=== PATIENT | male | born 1965 | race Caucasian/White ===

== ENCOUNTER 2017-09-23 13:12 | Emergency (ER) | payer MEDICAID ==
[~2017-09-23] VITALS: Ht 167.6 cm; Wt 69.1 kg
[~2017-09-23 13:12] MED LIST: NO HOME MEDS
[2017-09-23 14:31] LABS: BASOPHILS # (AUTO) 0.1 X10'3 (0-0.2); BASOPHILS % (AUTO) 0.4 % (0-1); EOSINOPHILS # (AUTO) 0.2 X10'3 (0-0.9); EOSINOPHILS % (AUTO) 1.2 % (0-6); HEMATOCRIT 50.8 % (42.0-52.0); HEMOGLOBIN 17.4 g/dl (14.0-17.9); LYMPHOCYTES # (AUTO) 0.9 X10'3 (1.1-4.8); MEAN CORPUSCULAR HEMOGLOBIN 32.6 PG (27.0-31.0); MEAN CORPUSCULAR HGB CONC 34.3 % (33.0-36.5); MEAN PLATELET VOLUME 7.1 FL (7.4-10.4); MONOCYTES # (AUTO) 1.2 X10'3 (0-0.9); MONOCYTES % (AUTO) 8.4 % (2-12); PLATELET COUNT 317 X10'3 (140-440); RED BLOOD COUNT 5.34 X10'6 (4.70-6.10); WHITE BLOOD COUNT 14.2 X10'3 (4.5-11.0)
[2017-09-23 14:32] LABS: ALANINE AMINOTRANSFERASE 37 U/L (12-78); ALBUMIN 3.4 G/DL (3.4-5.0); ALBUMIN/GLOBULIN RATIO 0.7 (1.1-1.5); ALKALINE PHOSPHATASE 120 IU/L (46-116); ANION GAP 12 (8-16); ASPARTATE AMINO TRANSFERASE 23 U/L (10-37); BILIRUBIN,TOTAL 0.7 MG/DL (0.1-1.0); BLOOD UREA NITROGEN 10 MG/DL (7-18); BUN/CREATININE RATIO 11.9 (5.4-32.0); CALCIUM 8.9 MG/DL (8.5-10.1); CHLORIDE 95 MMOL/L (99-107); CREATININE 0.84 MG/DL (0.60-1.10); GLUCOSE 101 MG/DL (70-104); LIPASE 102 U/L (73-393); SODIUM 132 MMOL/L (135-145); TOTAL CARBON DIOXIDE 24.6 MMOL/L (24-32); TOTAL PROTEIN 8.4 G/DL (6.4-8.2); eGFR > 90 ML/MIN
[2017-09-23 14:33] LABS: POTASSIUM 3.8 MMOL/L (3.5-5.1)
[2017-09-23 14:35] LABS: CLARITY,URINE CLEAR (Clear); COLOR,URINE STRAW (Yellow); GLUCOSE, URINE NEGATIVE (Neg); KETONES,URINE 15 mg/dl (Neg); LEUKOCYTE ESTERASE ,URINE NEGATIVE (Neg); NITRITES, URINE NEGATIVE (Neg); OCCULT BLOOD,URINE NEGATIVE (Neg); PROTEIN,URINE NEGATIVE (Neg); UROBILINOGEN,URINE 0.2 E.U/dL (0.2-1.0)
[2017-09-23 14:45] LABS: UA COLLECTION TYPE CLN CATCH MIDSTREAM
[2017-09-23] MEDS ORDERED: ondansetron/PF 4mg/2ml inj IV ONE (16:45)
[2017-09-23] MEDS ORDERED: MORPHINE 2MG in 2ml NS syringe IV PRN (16:45)
[2017-09-23] MEDS ORDERED: normal saline 1000ML IV soln IVB ONE (16:50)
[2017-09-23] MEDS ORDERED: ketorolac tromethamine 15mg/ml inj. IV ONE (16:50)
[2017-09-23] MEDS ORDERED: CIPR-230 PO (18:53)
[2017-09-23] MEDS ORDERED: METR500T4 PO (18:53)
[2017-09-23] MEDS ORDERED: HYDR-565 PO (18:58)
[2017-09-23] MEDS ORDERED: heparin sodium, porcine/PF 100unit/ml 5ML syringe IV ONE (19:00)
[2017-09-23] MEDS ORDERED: morphine 4 MG/ML inj SYRINge IV PRN (19:17)
[2017-09-23 20:30] VITALS: BP 126/78
== END 2017-09-23 20:32 | disposition home or self-care (01) ==
LOC: ER 13:13
DX: K52.9 Noninfective gastroenteritis and colitis, unspecified (principal); F17.200 Nicotine dependence, unspecified, uncomplicated; Z85.048 Personal history of other malignant neoplasm of rectum, rectosigmoid junction, and anus; Z79.899 Other long term (current) drug therapy
CPT/HCPCS: 36415; 74176; 80053; 81003; 83690; 85025; 85610; 96361; 96374; 96375; 99285; J1642; J1885; J2274; J2405

== ENCOUNTER 2018-09-01 08:51 | Day surgery (SDC) | payer MEDICARE, MEDICAID ==
[~2018-09-01] VITALS: Ht 175.3 cm; Wt 67.3 kg
[2018-09-01] VITALS (8 sets, daily range): BP systolic 62–117; BP diastolic 31–84
[2018-09-01] MEDS ORDERED: HYDR-4353 PO (09:19)
[2018-09-01] MEDS ORDERED: LIDOcaine 1% 30ml preserv. free vial SQ ONE (09:30)
== END 2018-09-01 10:00 | disposition home or self-care (01) ==
LOC: SSTAY O 08:51
PROVIDERS: ATTEND Radiology Vascular & Interventional Radiology
DX: J90 Pleural effusion, not elsewhere classified (principal); J98.11 Atelectasis; Z90.49 Acquired absence of other specified parts of digestive tract; Z93.3 Colostomy status; Z85.048 Personal history of other malignant neoplasm of rectum, rectosigmoid junction, and anus; Z79.899 Other long term (current) drug therapy
CPT/HCPCS: 32555; 71045; C1729; J3490; 88108; 88305

== ENCOUNTER 2018-10-17 07:20 | Day surgery (SDC) | payer MEDICARE, MEDICAID ==
[~2018-10-17] VITALS: Ht 172.7 cm; Wt 67.5 kg
[~2018-10-17 07:20] MED LIST changes: +HYDR-4353 PO; +LIDOcaine 1% 30ml preserv. free vial SQ STA; -NO HOME MEDS
[2018-10-17 07:41] VITALS: BP 121/84
[2018-10-17] MEDS ORDERED: [UNRECOGNIZED DRUG - OTHER] INJ (07:48)
[2018-10-17 08:45] VITALS: BP 127/87
[2018-10-17 08:50] VITALS: BP 114/71
[2018-10-17 08:55] VITALS: BP 106/76
[2018-10-17 09:00] VITALS: BP 118/81
[2018-10-17 09:02] VITALS: BP 130/89
== END 2018-10-17 09:05 | disposition home or self-care (01) ==
LOC: SSTAY O 07:20
PROVIDERS: ATTEND Radiology Diagnostic Radiology
DX: J90 Pleural effusion, not elsewhere classified (principal); Z93.3 Colostomy status; Z79.899 Other long term (current) drug therapy
CPT/HCPCS: 32555; 71045; C1729; J3490; 88108; 88305